=== PATIENT | female | born 1945 | race Caucasian/White ===

== ENCOUNTER 2021-06-07 10:00 | Outpatient (RCR) | payer MEDICARE, SELFPAY | END 2022-04-10 11:45 | disposition home or self-care (01) | LOC: HO.PTCHIC 10:00 | PROVIDERS: PCP Internal Medicine; Visit Provider Internal Medicine | DX: G35 Multiple sclerosis (principal) | CPT/HCPCS: 97110; 97163 ==

== ENCOUNTER 2022-02-26 13:28 | Outpatient (RCR) | payer MEDICARE, SELFPAY | END 2022-04-09 14:21 | disposition home or self-care (01) | LOC: HO.WCC 13:28 | PROVIDERS: PCP Internal Medicine; Visit Provider Physician Assistant | DX: I70.244 Atherosclerosis of native arteries of left leg with ulceration of heel and midfoot (principal); L89.620 Pressure ulcer of left heel, unstageable; I10 Essential (primary) hypertension; G35 Multiple sclerosis; L84 Corns and callosities; G62.9 Polyneuropathy, unspecified; Z92.3 Personal history of irradiation; Z85.72 Personal history of non-Hodgkin lymphomas; Z85.528 Personal history of other malignant neoplasm of kidney; Z92.21 Personal history of antineoplastic chemotherapy | CPT/HCPCS: 97597; 99212; 99214 ==

== ENCOUNTER 2022-03-04 17:26 | Outpatient (REF) | payer MEDICARE, SELFPAY | END 2022-03-04 17:27 | disposition home or self-care (01) | LOC: HO.LNP 17:26 | PROVIDERS: Visit Provider Physician Assistant | DX: T14.8XXD Other injury of unspecified body region, subsequent encounter (principal); X58.XXXD Exposure to other specified factors, subsequent encounter | CPT/HCPCS: 87071; 87205 ==

== ENCOUNTER → 2022-04-03 09:09 | Outpatient (RCR) | payer MEDICARE, SELFPAY | END | disposition home or self-care (01) | LOC: HO.PTCHIC 08-31 09:56 | PROVIDERS: PCP Internal Medicine; Visit Provider Psychiatry & Neurology Neurology | DX: G35 Multiple sclerosis (principal); Z91.81 History of falling | CPT/HCPCS: 97110; 97112 ==

== ENCOUNTER 2022-04-19 08:49 | Outpatient (REF) | payer MEDICARE, SELFPAY ==
--- NOTE | ~2022-04-19 | CT_ITS ---
EXAMINATION: CT FOOT WITHOUT CONTRAST, LEFT CLINICAL INFORMATION: Left heel ulcer. Evaluate for a foreign body. COMPARISON: None. TECHNIQUE: Contiguous axial CT images of the left foot were obtained without contrast. Multiplanar reformats were provided and reviewed. This CT examination was performed using dose optimization techniques as appropriate, variously including the following: *Automated exposure control *Adjustment of mA and/or kV according to patient size (this includes techniques or standardized protocols for targeted exams where dose is matched to indication/reason for exam; i.e. extremities or head) *Use of iterative reconstruction technique DOSE: 209 mGy-cm. FINDINGS: No acute fracture or dislocation. Diffuse osteopenia. Joint space narrowing with marginal osteophytes at the 1st metatarsophalangeal joint and hallux sesamoids where there is mild subchondral cystic change. No concerning lytic or blastic osseous lesion. There appears to be a skin defect/ulceration along the plantar aspect of the heel with mild subcutaneous stranding. Findings could represent cellulitis in the appropriate clinical setting. No organized fluid collection or abscess formation. No radiopaque foreign body. No abnormal soft tissue calcification. The visualized flexor and extensor tendons are grossly intact. Medial and lateral ankle as well as dorsal forefoot subcutaneous edema. CT/CT foot LT wo con IMPRESSION: 1. Probable soft tissue ulceration along the plantar aspect of the heel with mild stranding which could indicate cellulitis in the appropriate clinical setting. No radiopaque foreign body. No abscess formation. There are 2 medial and lateral ankle as well as dorsal forefoot subcutaneous edema. 3. No acute osseous abnormality. Diffuse osteopenia. 4. 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
== END 2022-04-19 08:50 | disposition home or self-care (01) ==
LOC: HO.CT 08:49
PROVIDERS: PCP Internal Medicine; Visit Provider Physician Assistant
DX: L89.620 Pressure ulcer of left heel, unstageable (principal); G35 Multiple sclerosis
CPT/HCPCS: 73700

== ENCOUNTER 2022-10-31 11:00 | Outpatient (RCR) | payer MEDICARE, SELFPAY | END 2022-11-13 07:39 | disposition home or self-care (01) | LOC: HO.PTCHIC 11:00 | PROVIDERS: PCP Internal Medicine; Visit Provider Internal Medicine | DX: G35 Multiple sclerosis (principal); R26.9 Unspecified abnormalities of gait and mobility; Z91.81 History of falling | CPT/HCPCS: 97110; 97112; 97163 ==

== ENCOUNTER 2022-12-04 10:00 | Outpatient (RCR) | payer MEDICARE, SELFPAY | END 2022-12-04 11:17 | disposition home or self-care (01) | LOC: HO.OT 10:00 | PROVIDERS: PCP Internal Medicine; Visit Provider Internal Medicine | DX: G35 Multiple sclerosis (principal); C85.10 Unspecified B-cell lymphoma, unspecified site; G25.2 Other specified forms of tremor | CPT/HCPCS: 97110; 97166; 97530 ==